=== PATIENT | female | born 1970 | race Caucasian/White ===

== ENCOUNTER → 2018-11-01 | Outpatient (CLI) | payer BC ==
--- NOTE | 2018-11-01 14:25 | Diagnostic Imaging Report ---
INDICATION: Chronic cough EXAMINATION: PA and lateral chest at 1:51 p.m. . COMPARISON: There are no prior studies available for comparison. FINDINGS: The heart size is within normal limits. The lungs are clear. There is no evidence for failure, pneumonia or for a pleural effusion. The mediastinum is not widened. The osseous structures are intact. IMPRESSION: There is no evidence for an acute cardiopulmonary abnormality. Dictated by: Dictated on workstation # [id number]
== END ==
LOC: RAD FS 13:42
PROVIDERS: ATTEND Physician Assistant
DX: R05 Cough (principal)
CPT/HCPCS: 71046

== ENCOUNTER → 2019-10-14 | Outpatient (CLI) | payer SELFPAY ==
--- NOTE | 2019-10-14 13:58 | Diagnostic Imaging Report ---
INDICATION: Lower abdominal pain and bloating. TIME OF EXAM: 1:41 PM The bowel gas pattern appears nonobstructed. No pathologic calcifications are seen. No free air is identified. IMPRESSION: No acute feature is detected. Dictated by: Dictated on workstation # [id number]
== END ==
LOC: RAD FS 13:23
PROVIDERS: ATTEND Nurse Practitioner Family
DX: R10.30 Lower abdominal pain, unspecified (principal); R10.84 Generalized abdominal pain
CPT/HCPCS: 74018

== ENCOUNTER 2021-11-01 23:49 | Emergency (ER) | payer OTHER ==
[~2021-11-01] VITALS: Ht 154 cm; Wt 80.0 kg
[2021-11-02 00:20] VITALS: BP 164/79
[2021-11-02] MEDS ORDERED: RT-ALBUTEROL/IPRATROPIUM 3 ML (DUONEB) VIAL INH ONE (00:30)
[2021-11-02] MEDS ORDERED: oxyCODONE/APAP 5/325MG (PERCOCET 5) TABLET PO ONE (00:30)
[2021-11-02] MEDS ORDERED: predniSONE 20 MG TAB PO ONE (00:30)
--- NOTE | 2021-11-02 00:30 | ED General ---
General Chief Complaint: Cough/Cold/Flu Symptoms Stated Complaint: TROUBLE BREATHIN/COUGH/LEFT EYE PAIN Nursing Triage Note: pt presents with reports of cough and left eye drainage x3days Source of Information: Patient Exam Limitations: No Limitations History of Present Illness Date Seen by Provider: Nov 02, 2021 Time Seen by Provider: 00:00 Initial Comments Patient is a 51-year-old female who presents with painful cough, hoarseness, sor e throat and left eye drainage for 3 days. Patient reports shortness of breath secondary to cough. No fever chills, nausea vomiting or sweats. Reports chest wall pain. Denies history of asthma. Patient is a non-smoker. No medications or therapies taken prior to arrival. Timing/Duration: 1-3 Hours Severity: Mild Modifying Factors: improves with Other Associated Systoms: Other Allergies and Home Medications Allergies Coded Allergies: No Known Allergies (Verified Allergy, Unknown, 11/02/21) Patient Home Medication List Home Medication List Reviewed: Yes Review of Systems Review of Systems Constitutional: see HPI EENTM: see HPI Respiratory: see HPI Cardiovascular: see HPI Genitourinary: see HPI Musculoskeletal: see HPI Skin: see HPI Psychiatric/Neurological: See HPI Hematologic/Lymphatic: See HPI Immunological/Allergic: see HPI All Other Systems Reviewed Negative Unless Noted: Yes Past Qrthpsg-Fmelpm-Llghxv Hx Patient Social History Tobacco Use?: Yes Tobacco type used: Cigarettes Smoking Status: Current Everyday Smoker Substance use?: No Alcohol Use?: No Immunizations Up To Date Influenza Vaccine Up-to-Date: No; Not Current Physical Exam Vital Signs Vital Signs - First Documented 11/02/21 00:20 Pulse 97 Resp 20 B/P (MAP) 164/79 (107) Pulse Ox 97 O2 Delivery Room Air O2 Flow Rate 97.00 Capillary Refill : Height, Weight, BMI Height: '" Weight: lbs. oz. kg; 33.00 BMI Method: General Appearance: No Apparent Distress, WD/WN Eyes: Bilateral Eye Normal Inspection, Bilateral Eye PERRL, Bilateral Eye EOMI HEENT: Pharynx Normal Neck: Normal Inspection, Non Tender, Supple, Other (Matting of left eyelids) Respiratory: Lungs Clear, Decreased Breath Sounds, Rhonci Cardiovascular: Regular Rate, Rhythm Gastrointestinal: Non Tender, Soft Back: Normal Inspection Neurologic/Psychiatric: Alert, Oriented x3, No Motor/Sensory Deficits Focused Exam Sepsis Stage: Ruled Out Progress/Results/Core Measures Suspected Sepsis SIRS Temperature: Pulse: 97 Respiratory Rate: 20 Blood Pressure 164 /79 Mean: 107 Results/Orders My Orders Orders - RASHIDASOHAM Prednisone Tablet (Deltasone Tablet) (11/02/21 00:30) Oxycodone/Apap 5/325mg Tablet (Percocet (11/02/21 00:30) Albuterol/Ipra Inhalation Soln (Duoneb I (11/02/21 00:30) Svn Small Volume Nebulizer (11/02/21 00:20) Influenza A & B Antigens (11/02/21 00:20) Medications Given in ED Current Medications Medications Dose Ordered Sig/Gatito Route Start Time Stop Time Status Last Admin Dose Admin Albuterol/ Ipratropium 3 ml ONCE ONCE INH 11/02/21 00:30 11/02/21 00:31 DC 11/02/21 00:26 3 ML Oxycodone/ Acetaminophen 1 tab ONCE ONCE PO 11/02/21 00:30 11/02/21 00:31 DC 11/02/21 00:26 1 TAB Prednisone 50 mg ONCE ONCE PO 11/02/21 00:30 11/02/21 00:31 DC 11/02/21 00:26 50 MG Vital Signs/I&O 11/02/21 11/02/21 00:20 00:20 Pulse 97 Resp 20 B/P (MAP) 164/79 (107) Pulse Ox 97 O2 Delivery Room Air Room Air O2 Flow Rate 97.00 Capillary Refill : Blood Pressure Mean: 107 Departure Communication (Admissions) Symptoms consistent with walking pneumonia with bacterial pinkeye. Symptoms improved with treatment. Impression Primary Impression: Bronchial pneumonia Additional Impression: Bacterial conjunctivitis of left eye Disposition: 01 HOME, SELF-CARE Condition: Stable Departure-Patient Inst. Decision time for Depature: 00:38 Referrals: [facility]KAVYA (PCP) Primary Care Physician DIMITRY DAVIS APRN (Family) Primary Care Physician Patient Instructions: Conjunctivitis (Pinkeye) (DC), Acute Bronchitis, Adult (DC) Add. Discharge Instructions: You were evaluated in the emergency department for cough, sore throat and left eye infection. Please take newly prescribed medications as directed increase fluids and follow-up with your PCP in 2 to 3 days for reevaluation symptoms persist. Return to the ED if new or worsening symptoms. All discharge instructions reviewed with patient and/or family. Voiced understanding. Scripts Ofloxacin (Ofloxacin) 0.3 % Drops 5 ML OT Q3HR, #2 DROPS Prov: SOHAM FIELD DO 11/02/21 Prednisone (Prednisone) 20 Mg Tab 40 MG PO DAILY, #6 TAB 0 Refills Prov: SOHAM FIELD DO 11/02/21 Azithromycin (Zithromax) 250 Mg Tablet 250 MG PO UD, #6 TAB TAKE 2 TABLETS TODAY, THEN TAKE 1 TABLET DAILY FOR 4 MORE DAYS Prov: SOHAM FIELD DO 11/02/21 Benzonatate (TESSALON PERLES) 100 Mg Capsule 200 MG PO Q8H, #10 CAP Prov: SOHAM FIELD DO 11/02/21 SOHAM FIELD DO Nov 02, 2021 00:30
[2021-11-02] MEDS ORDERED: BENZ100C18 PO (00:42)
[2021-11-02] MEDS ORDERED: AZIT250T PO (00:42)
[2021-11-02] MEDS ORDERED: PRD20T PO (00:42)
[2021-11-02] MEDS ORDERED: OFLO5DRO33 OT (00:42)
== END 2021-11-02 00:46 | disposition home or self-care (01) ==
LOC: EDUNIT# 23:49 → ER FS 23:52
DX: J18.0 Bronchopneumonia, unspecified organism (principal); H10.89 Other conjunctivitis; F17.210 Nicotine dependence, cigarettes, uncomplicated
CPT/HCPCS: 87804; 99283

== ENCOUNTER 2022-10-08 12:13 | Emergency (ER) | payer OTHER ==
[~2022-10-08] VITALS: Ht 154 cm; Wt 77.0 kg
[~2022-10-08 12:13] MED LIST: AZIT250T PO; BENZ100C18 PO; OFLO5DRO33 OT; PRD20T PO
[2022-10-08] MEDS ORDERED: LIDOCAINE 1% INJ 20 ML VIAL ONE (12:24)
[2022-10-08] MEDS ORDERED: ONDANSETRON 4 MG (ZOFRAN) ORAL DISSOLVE TAB PO STA (12:35)
[2022-10-08] MEDS ORDERED: ONDANSETRON 4 MG (ZOFRAN) ORAL DISSOLVE TAB ONE (12:37)
[2022-10-08] MEDS ORDERED: TETANUS,DIPTH,PERTUSS P/F (BOOSTRIX) 0.5 ML VIAL IM ONE (12:45)
[2022-10-08] MEDS ORDERED: TETANUS & DIPHTHERIA TOX,ADULT 0.5 ML (TENIVAC) IM ONE (12:45)
[2022-10-08] MEDS ORDERED: LIDOCAINE 1% INJ 10 ML VIAL INJ ONE (12:45)
--- NOTE | 2022-10-08 12:50 | ED Upper Extremity ---
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 Source: patient History of Present Illness Date Seen by Provider: Oct 08, 2022 Time Seen by Provider: 12:16 Initial Comments 52-year-old female presenting with complaints of laceration to her left index finger. She was at work sharpening a knife and the irrigator came off the wall. This caused her to have the knife cut into her left index finger. She is right-hand dominant. She denies any other injuries. She was unsure of her last tetanus booster. She had pain at the site of injury but was able to still move her finger and had normal sensation. She reports injury happened just prior to coming to the emergency department they were trying to get lunch ready when this happened. Location Injury Occurred: [place] [facility] Onset: just prior to arrival Severity: moderate Pain/Injury Location: left 2nd finger Method of Injury: incised Modifying Factors: Worse With Movement Allergies and Home Medications Allergies Coded Allergies: No Known Allergies (Verified Allergy, Unknown, 11/02/21) Patient Home Medication List Home Medication List Reviewed: Yes Azithromycin (Zithromax) 250 Mg Tablet, 250 MG PO UD Prescribed by: SOHAM FIELD on 11/02/2141 Benzonatate (Tessalon Perles) 100 Mg Capsule, 200 MG PO Q8H Prescribed by: SOHAM FIELD on 11/02/2141 Ofloxacin (Ofloxacin) 0.3 % Drops, 5 ML OT Q3HR Prescribed by: SOHAM FIELD on 11/02/2141 Prednisone (Prednisone) 20 Mg Tab, 40 MG PO DAILY Prescribed by: SOHAM FIELD on 11/02/2141 Review of Systems Constitutional: No chills, No fever EENTM: no symptoms reported Respiratory: no symptoms reported Cardiovascular: no symptoms reported Gastrointestinal: no symptoms reported Genitourinary: no symptoms reported Musculoskeletal: see HPI Skin: see HPI Psychiatric/Neurological: Anxiety; Denies Numbness, Denies Paresthesia Past Httcszd-Bvddjc-Vrnfxm Hx Patient Social History Tobacco Use?: Yes Tobacco type used: Cigarettes Smoking Status: Current Everyday Smoker Use of E-Cig and/or Vaping dev: No Substance use?: No Alcohol Use?: No Pt feels they are or have been: No Past Medical History Surgeries: No Physical Exam Vital Signs Vital Signs - First Documented 10/08/22 12:15 Temp 35.8 Pulse 98 Resp 16 B/P (MAP) 179/94 (122) Pulse Ox 95 O2 Delivery Room Air Capillary Refill : Less Than 3 Seconds Height, Weight, BMI Height: '" Weight: lbs. oz. kg; 32.00 BMI Method: General Appearance: WD/WN, other (anxious) HEENT: PERRL/EOMI, pharynx normal Cardiovascular: normal peripheral pulses, regular rate, rhythm Respiratory: chest non-tender, lungs clear, normal breath sounds Hand: normal ROM, Left, laceration (left index finger extensor surface just distal to MCP joint), nail injury, soft tissue tenderness Neurologic/Tendon: normal sensation, normal motor functions, normal tendon functions Neurologic/Psychiatric: no motor/sensory deficits, alert, oriented x 3 Skin: normal color, warm/dry, other (2.6 cm laceration to the extensor surface of left index finger just distal to MCP joint) Procedures/Interventions Wound Location: Upper Extremities (left index finger) Wound Length (cm): 2.6 Wound's Depth, Shape: linear, sub Q Wound Explored: clean Anesthesia: 1% Lidocaine Volume Anesthetic (ccs): 5 Suture: Ethlion Suture Size: 4-0 Number of Sutures: 5 Layer Closure?: 1 Sterile Dressing Applied?: Yes Progress After obtaining verbal consent from the patient the finger was cleaned and then anesthetized with 1% plain lidocaine by infiltrating 5 mL and a ring block fa shion. Then the wound was cleaned and scrubbed with chlorhexidine scrub soap and sterile water. No foreign bodies were visualized. Using 4-0 Ethilon a total of 5 simple interrupted stitches were placed to approximate the wound edges. Patient tolerated procedure well but did have a vasovagal response with injection of medicine. She was given a single dose of Zofran ODT 4 mg to try and help with nausea. She had a cold wash rag placed on her forehead. The wound edges were well approximated and a clean sterile dressing was applied. Counseled to keep the dressing clean and dry for the first 24 hours and then she could change the dressing and wash with soap and water but do not soak the wound. The stitches should come out in 10 to 14 days. Watch for signs of infection. May cover with a Band-Aid if it might get dirty or if the stitches are catching on things. May apply triple antibiotic or Neosporin type antibiotic once or twice a day as needed to help with healing. Progress/Results/Core Measures Results/Orders My Orders Orders - AUGIE BORREGO MD Lidocaine 1% Inj 20 Ml (Xylocaine 1% Inj (10/08/22 12:24) Ondansetron Oral Dissolve Tab (Zofran (10/08/22 12:35) Lidocaine 1% Inj 10 Ml (Xylocaine 1% Inj (10/08/22 12:45) Tetanus/Diphtheria Inj (Adult) (Tenivac (10/08/22 12:45) Ondansetron Oral Dissolve Tab (Zofran (10/08/22 12:37) Dipht,Pertuss(Acell),Tet Adult (Boostrix (10/08/22 12:45) Suture Set At Bedside (10/08/22 12:47) Wound Dressing-Ed (10/08/22 12:47) Medications Given in ED Current Medications Medications Dose Ordered Sig/Gatito Route Start Time Stop Time Status Last Admin Dose Admin Lidocaine HCl 10 ml ONCE ONCE INJ 10/08/22 12:45 10/08/22 12:46 DC 10/08/22 12:43 10 ML Vital Signs/I&O 10/08/22 10/08/22 12:15 12:52 Temp 35.8 35.8 Pulse 98 98 Resp 16 16 B/P (MAP) 179/94 (122) 179/94 Pulse Ox 95 95 O2 Delivery Room Air Room Air Blood Pressure Mean: 122 Progress Progress Note : Progress Note As patient does not appear to have any tendon or nerve injury since she has normal sensation to her left index finger and normal range of motion, the wound was cleaned with chlorhexidine scrub soap and sterile water. As there was still concern for foreign bodies or bony injury an x-ray was not needed to evaluate the wound. Using 4-0 Ethilon a total of 5 simple interrupted stitches were placed after she had received a digital ring block with 1% plain lidocaine. She did have a vasovagal response with feeling hot and flushed as well as nauseated. This occurred after talking about receiving medication by injection. She seemed to have more symptoms after she has not been injected with the lidocaine for the digital ring block. She otherwise tolerated the laceration repair well. Counseled on management of the wound as well as follow-up and return precautions. Advised to have the stitches out in 10 to 14 days. Advised she could return to work under light duty as she would have to keep his dressing clean and dry on her left index finger for 24 hours. After that she would need to cover it if it might get dirty and she should not be soaking her finger or hand in water. As she was unsure about her last tetanus shot I advised her she could have up to 72 hours to get that updated. She initially said that she would just have the shot done here however after she had vasovagal symptoms and felt nauseated with a hot flash she decided to refused the tetanus vaccine booster. Counseled that she could use [id number] acetaminophen or ibuprofen if needed for pain. She could also try and elevate her hand if it was hurting or throbbing. She can apply ice for 15 to 20 minutes 3-4 times a day as needed to help with pain and swelling. Advised to check back with the clinic if she requires a tetanus booster as they could also provide that. Departure Impression Primary Impression: Laceration of left index finger w/o foreign body w/o damage to nail Qualified Codes: S61.211A - Laceration without foreign body of left index finger without damage to nail, initial encounter Disposition: 01 HOME, SELF-CARE Condition: Stable Departure-Patient Inst. Decision time for Depature: 12:48 Referrals: CAROL ANN LÓPEZ MD (PCP) Primary Care Physician Patient Instructions: Laceration Repair With Stitches ED, Common Finger Injuries Add. Discharge Instructions: Keep wound and dressing clean and dry for the first 24 hours. After that you may remove the dressing and wash with soap and water. Do not soak the wound as that can make the stitches come out and the wound reopened. Tomorrow afternoon when you remove the dressing and wash the wound you could apply triple antibiotic or Neosporin and cover with a Band-Aid if it might get dirty. The stitches would need to be removed in 10 to 14 days. 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 Consider taking acetaminophen and/or ibuprofen for soreness with the injury. You could also apply ice and try and elevate the hand above heart level to help with any pain or swelling. If you see signs of infection such as redness streaking up your hand, pus draining from the wound, fever over 101 Fahrenheit then you need to be seen aga in to see if you might need antibiotics. All discharge instructions reviewed with patient and/or family. Voiced understanding. AUGIE BORREGO MD Oct 08, 2022 12:50
[2022-10-08 12:52] VITALS: BP 179/94
== END 2022-10-08 12:55 | disposition home or self-care (01) ==
LOC: EDUNIT# 12:13 → ER FS 12:15
DX: S61.211A Laceration without foreign body of left index finger without damage to nail, initial encounter (principal); F17.210 Nicotine dependence, cigarettes, uncomplicated; Z28.310 Unvaccinated for COVID-19; W26.0XXA Contact with knife, initial encounter; Y92.129 Unspecified place in nursing home as the place of occurrence of the external cause; Y99.0 Civilian activity done for income or pay
CPT/HCPCS: 12001

== ENCOUNTER 2022-12-25 07:53 | Emergency (ER) | payer OTHER ==
[~2022-12-25] VITALS: Ht 154 cm; Wt 79.0 kg
[2022-12-25 08:04] VITALS: BP 193/74
--- NOTE | 2022-12-25 08:06 | ED Cough/URI ---
General Chief Complaint: Cough/Cold/Flu Symptoms Stated Complaint: CHEST PAIN History of Present Illness Date Seen by Provider: Dec 25, 2022 Time Seen by Provider: 08:01 Initial Comments 52-year-old female with PMH of DM2/HTN/HLD/smoker (3 to 5 cigarettes/day), is here with complaints of dry cough and chest tightness for the past 2 weeks. Patient had chills 2 or 3 days ago. Patient states that she feels a little bit short of breath with wheezing when she walks around or climbs stairs. Denies chest pain, palpitations, nausea and vomiting, diaphoresis, abdominal pain, diarrhea, dizziness. Allergies and Home Medications Allergies Coded Allergies: No Known Allergies (Verified Allergy, Unknown, 11/02/21) Patient Home Medication List Home Medication List Reviewed: Yes Azithromycin (Zithromax) 250 Mg Tablet, 250 MG PO UD Prescribed by: SOHAM FIELD on 11/02/2141 Benzonatate (Tessalon Perles) 100 Mg Capsule, 200 MG PO Q8H Prescribed by: SOHAM FIELD on 11/02/2141 Ofloxacin (Ofloxacin) 0.3 % Drops, 5 ML OT Q3HR Prescribed by: SOHAM FIELD on 11/02/2141 Prednisone (Prednisone) 20 Mg Tab, 40 MG PO DAILY Prescribed by: SOHAM FIELD on 11/02/2141 Review of Systems Review of Systems Constitutional: chills EENTM: no symptoms reported Respiratory: cough, dyspnea on exertion, wheezing Cardiovascular: no symptoms reported Gastrointestinal: no symptoms reported Genitourinary: no symptoms reported Musculoskeletal: no symptoms reported Skin: no symptoms reported Psychiatric/Neurological: No Symptoms Reported Hematologic/Lymphatic: No Symptoms Reported Immunological/Allergic: no symptoms reported Past Qtnvrpw-Rpjhob-Zapkgr Hx Patient Social History Tobacco Use?: Yes Tobacco type used: Cigarettes Smoking Status: Current Everyday Smoker Use of E-Cig and/or Vaping dev: No Substance use?: No Alcohol Use?: No Pt feels they are or have been: No Past Medical History Surgeries: No Physical Exam Vital Signs - First Documented 12/25/22 08:04 Temp 35.9 Pulse 102 Resp 16 B/P (MAP) 193/74 (113) Pulse Ox 98 Capillary Refill : Height: '" Weight: lbs. oz. kg; 32.00 BMI Method: General Appearance: WD/WN, no apparent distress HEENT: PERRL/EOMI, normal ENT inspection Neck: non-tender, full range of motion, supple Respiratory: chest non-tender, no respiratory distress, no accessory muscle use, wheezing (Very mild expiratory occasional wheezes) Cardiovascular: normal peripheral pulses, regular rate, rhythm Gastrointestinal: normal bowel sounds, non tender, soft Extremities: no pedal edema Neurologic/Psychiatric: alert, normal mood/affect, oriented x 3 Skin: normal color Procedures/Interventions Suture Size: 4-0 Progress/Results/Core Measures Suspected Sepsis SIRS Temperature: Pulse: Respiratory Rate: Laboratory Tests 12/25/22 08:18: White Blood Count 10.7 Blood Pressure / Mean: Laboratory Tests 12/25/22 08:18: Creatinine 0.78, Platelet Count 270, Total Bilirubin 0.2 Results/Orders Lab Results Laboratory Tests Test 12/25/22 08:18 12/25/22 08:40 Range/Units White Blood Count 10.7 4.3-11.0 10^3/uL Red Blood Count 5.06 3.80-5.11 10^6/uL Hemoglobin 15.5 11.5-16.0 g/dL Hematocrit 47 35-52 % Mean Corpuscular Volume 93 80-99 fL Mean Corpuscular Hemoglobin 31 25-34 pg Mean Corpuscular Hemoglobin Concent 33 32-36 g/dL Red Cell Distribution Width 13.3 10.0-14.5 % Platelet Count 270 130-400 10^3/uL Mean Platelet Volume 10.1 9.0-12.2 fL Immature Granulocyte % (Auto) 1 % Neutrophils (%) (Auto) 61 42-75 % Lymphocytes (%) (Auto) 24 12-44 % Monocytes (%) (Auto) 8 0-12 % Eosinophils (%) (Auto) 5 0-10 % Basophils (%) (Auto) 1 0-10 % Neutrophils # (Auto) 6.5 1.8-7.8 10^3/uL Lymphocytes # (Auto) 2.6 1.0-4.0 10^3/uL Monocytes # (Auto) 0.9 0.0-1.0 10^3/uL Eosinophils # (Auto) 0.5 H 0.0-0.3 10^3/uL Basophils # (Auto) 0.1 0.0-0.1 10^3/uL Immature Granulocyte # (Auto) 0.1 0.0-0.1 10^3/uL Sodium Level 140 135-145 MMOL/L Potassium Level 4.1 3.6-5.0 MMOL/L Chloride Level 104 98-107 MMOL/L Carbon Dioxide Level 23 21-32 MMOL/L Anion Gap 13 5-14 MMOL/L Blood Urea Nitrogen 13 7-18 MG/DL Creatinine 0.78 0.60-1.30 MG/DL Estimat Glomerular Filtration Rate 90 BUN/Creatinine Ratio 17 Glucose Level 179 H 70-105 MG/DL Calcium Level 8.9 8.5-10.1 MG/DL Corrected Calcium 9.0 8.5-10.1 MG/DL Magnesium Level 1.9 1.6-2.4 MG/DL Total Bilirubin 0.2 0.1-1.0 MG/DL Aspartate Amino Transf (AST/SGOT) 28 5-34 U/L Alanine Aminotransferase (ALT/SGPT) 38 0-55 U/L Alkaline Phosphatase 131 40-136 U/L Troponin I < 0.30 <0.30 NG/ML Total Protein 7.3 6.4-8.2 GM/DL Albumin 3.9 3.2-4.5 GM/DL Influenza Type A (RT-PCR) Not Detected Not Detecte Influenza Type B (RT-PCR) Not Detected Not Detecte SARS-CoV-2 RNA (RT-PCR) Not Detected Not Detecte Urine Color YELLOW Urine Clarity CLEAR Urine pH 6.0 5-9 Urine Specific [place] >=1.030 1.016-1.022 Urine Protein NEGATIVE NEGATIVE Urine Glucose (UA) 3+ H NEGATIVE Urine Ketones NEGATIVE NEGATIVE Urine Nitrite NEGATIVE NEGATIVE Urine Bilirubin NEGATIVE NEGATIVE Urine Urobilinogen 0.2 < = 1.0 MG/DL Urine Leukocyte Esterase NEGATIVE NEGATIVE Urine RBC (Auto) NEGATIVE NEGATIVE Urine RBC NONE /HPF Urine WBC 0-2 /HPF Urine Squamous Epithelial Cells 5-10 /HPF Urine Crystals NONE /LPF Urine Bacteria NEGATIVE /HPF Urine Casts NONE /LPF Urine Mucus SMALL H /LPF Urine Culture Indicated NO Urine Opiates Screen NEGATIVE NEGATIVE Urine Oxycodone Screen NEGATIVE NEGATIVE Urine Methadone Screen NEGATIVE NEGATIVE Urine Propoxyphene Screen NEGATIVE NEGATIVE Urine Barbiturates Screen NEGATIVE NEGATIVE Ur Tricyclic Antidepressants Screen NEGATIVE NEGATIVE Urine Phencyclidine Screen NEGATIVE NEGATIVE Urine Amphetamines Screen POSITIVE H NEGATIVE Urine Methamphetamines Screen POSITIVE H NEGATIVE Urine Benzodiazepines Screen NEGATIVE NEGATIVE Urine Cocaine Screen NEGATIVE NEGATIVE Urine Cannabinoids Screen NEGATIVE NEGATIVE My Orders Orders - GLADYS SCHAFFER MD Chest 1 View Ap/Pa Only (12/25/22 08:06) Cbc With Automated Diff (12/25/22 08:07) Comprehensive Metabolic Panel (12/25/22 08:07) Drug Screen Stat (Urine) (12/25/22 08:07) Magnesium (12/25/22 08:07) Ua Culture If Indicated (12/25/22 08:07) Troponin I Fs (12/25/22 08:07) Covid 19 Inhouse Test (12/25/22 08:07) Influenza A And B By Pcr (12/25/22 08:07) Albuterol/Ipra Inhalation Soln (Duoneb I (12/25/22 09:15) Svn Small Volume Nebulizer (12/25/22 09:07) Medications Given in ED Current Medications Medications Dose Ordered Sig/[place] Route Start Time Stop Time Status Last Admin Dose Admin Albuterol/ Ipratropium 3 ml ONCE ONCE INH 12/25/22 09:15 12/25/22 09:16 DC 12/25/22 09:23 3 ML Vital Signs/I&O 12/25/22 08:04 Temp 35.9 Pulse 102 Resp 16 B/P (MAP) 193/74 (113) Pulse Ox 98 Capillary Refill : Progress Note : Progress Note 1. ASTHMA vs COPD - CXR: no acute findings - CBC/CMP: normal WBC - Troponin: undetected - Rapid flu test/ COVID test: negative - UA negative - Duo neb x1 given in ER -Infectious and emergent causes of patient's symptoms ruled out. Patient symptoms are likely due to asthma or COPD. -Patient's vitals are stable and patient is able to speak in clear sentences without any difficulty or shortness of breath. -Prescription given to patient for albuterol inhaler to be used as needed for shortness of breath every 4 hours -Advised to follow-up with PCP within the next 7 days, patient will be needing lung function testing for confirmatory diagnosis of asthma or COPD. -Advised patient to stop smoking -The patient was seen in the ED, and treated appropriately to presentation at a specific point in time. Patient is informed that there is a possibility that disease and illness can evolve and change in acuity rapidly or slowly after patient is discharged from the ER. Precautionary advice given to the patient for immediate return to ER if symptoms worsen or do not resolve, and to seek emergency care sooner rather than later. Pt also advised on the importance of PCP follow up and compliance with management and follow up plan with PCP and/or specialist, as this is part of the management plan. Pt verbally expressed understanding. 2. METHAMPHETAMINE ABUSE: -UDS is positive for methamphetamine -Advised patient to stop using any type of recreational recreational/illicit drugs Diagnostic Imaging Diagonstic Imaging: Xray Plain Films/CT/US/NM/MRI: chest Comments [facility], [place] NAME: SH[facility]AL [facility] REC#: [id number] PT STATUS: REG ER : 1970 PHYSICIAN: GLADYS SCHAFFER MD ADMIT DATE: 12/25/22/ER FS Draft Date of Exam:12/25/22 CHEST 1 VIEW AP/PA ONLY Indication: Cough. Findings: Lungs clear. No failure, effusion or pneumothorax. Impression: No acute-appearing abnormality. Dictated on workstation # [id number] Dict: 12/25/22 0843 Trans: 12/25/22 0844 [facility] [id number] Interpreted by: JOSH WHYTE Electronically signed by: Departure Impression Primary Impression: COPD suggested by initial evaluation Additional Impressions: Reactive airway disease Qualified Codes: J45.909 - Unspecified asthma, uncomplicated Methamphetamine abuse Disposition: 01 HOME, SELF-CARE Condition: Stable Departure-Patient Inst. Referrals: CAROL ANN LÓPEZ MD (PCP) Primary Care Physician DIMITRY DAVIS APRN (Family) Primary Care Physician Patient Instructions: COPD Diet, Avoiding asthma triggers, Rescue vs Controller Inhalers, Pulmonary rehabilitation, Risk Factors for COPD, Chronic Obstructive Pulmonary Disease (COPD) (DC), Asthma in adults, How to Use a Metered Dose Inha ler ED Add. Discharge Instructions: -Prescription given to patient for albuterol inhaler to be used as needed for shortness of breath every 4 hours -Advised to follow-up with PCP within the next 7 days, patient will be needing lung function testing for confirmatory diagnosis of asthma or COPD. -Advised patient to stop smoking -Advised patient to stop using any type of recreational recreational/illicit drugs All discharge instructions reviewed with patient and/or family. Voiced under standing. Scripts Albuterol Sulfate (VENTOLIN HFA) 1 Puff Puff 2 PUFF INH Q4H for Shortness of Breath for 30 Days, #1 EA 1 PUFF = 90 MCG Prov: GLADYS SCHAFFER MD 12/25/22 Albuterol Sulfate (VENTOLIN HFA) 1 Puff Puff 2 PUFF INH Q4H for Shortness of Breath for 30 Days, #1 EA 1 PUFF = 90 MCG Prov: GLADYS SCHAFFER MD 12/25/22 GLADYS SCHAFFER MD Dec 25, 2022 08:06
[2022-12-25 08:27] LABS: BASOPHILS # (AUTO) 0.1 10^3/uL (0.0-0.1); BASOPHILS % (AUTO) 1 % (0-10); EOSINOPHILS # (AUTO) 0.5 10^3/uL (0.0-0.3); EOSINOPHILS % (AUTO) 5 % (0-10); HEMATOCRIT 47 % (35-52); HEMOGLOBIN 15.5 g/dL (11.5-16.0); LYMPHOCYTES # (AUTO) 2.6 10^3/uL (1.0-4.0); LYMPHOCYTES % (AUTO) 24 % (12-44); MEAN CORPUSCULAR HEMOGLOBIN 31 pg (25-34); MEAN CORPUSCULAR HGB CONC 33 g/dL (32-36); MEAN CORPUSCULAR VOLUME 93 fL (80-99); MEAN PLATELET VOLUME 10.1 fL (9.0-12.2); MONOCYTES # (AUTO) 0.9 10^3/uL (0.0-1.0); MONOCYTES % (AUTO) 8 % (0-12); NEUTROPHILS # (AUTO) 6.5 10^3/uL (1.8-7.8); NEUTROPHILS % (AUTO) 61 % (42-75); PLATELET COUNT 270 10^3/uL (130-400); WHITE BLOOD COUNT 10.7 10^3/uL (4.3-11.0)
--- NOTE | 2022-12-25 08:44 | Diagnostic Imaging Report ---
Indication: Cough. Findings: Lungs clear. No failure, effusion or pneumothorax. Impression: No acute-appearing abnormality. Dictated by: Dictated on workstation # [id number]
[2022-12-25 08:50] LABS: BILIRUBIN,URINE NEGATIVE (NEGATIVE); CLARITY,URINE CLEAR; COLOR,URINE YELLOW; GLUCOSE, URINE (UA) 3+ (NEGATIVE); KETONES,URINE NEGATIVE (NEGATIVE); LEUKOCYTE ESTERASE ,URINE NEGATIVE (NEGATIVE); NITRITE,URINE NEGATIVE (NEGATIVE); PROTEIN,URINE NEGATIVE (NEGATIVE)
[2022-12-25 09:05] LABS: BACTERIA,URINE NEGATIVE /HPF; WBC,URINE 0-2 /HPF
[2022-12-25 09:07] LABS: BUN/CREATININE RATIO 17; CARBON DIOXIDE 23 MMOL/L (21-32); CHLORIDE 104 MMOL/L (98-107); CREATININE SERUM 0.78 MG/DL (0.60-1.30); GFR ESTIMATED 90; GLUCOSE 179 MG/DL (70-105); POTASSIUM 4.1 MMOL/L (3.6-5.0); SODIUM 140 MMOL/L (135-145)
[2022-12-25 09:08] LABS: ALANINE AMINOTRANSFERASE 38 U/L (0-55); ALBUMIN 3.9 GM/DL (3.2-4.5); ALKALINE PHOSPHATASE 131 U/L (40-136); BILIRUBIN,TOTAL 0.2 MG/DL (0.1-1.0); CALCIUM 8.9 MG/DL (8.5-10.1); MAGNESIUM 1.9 MG/DL (1.6-2.4); TOTAL PROTEIN 7.3 GM/DL (6.4-8.2)
[2022-12-25 09:09] LABS: AMPHETAMINE SCREEN, URINE POSITIVE (NEGATIVE); BARBITURATE SCREEN URINE NEGATIVE (NEGATIVE); BENZODIAZEPINES SCREEN URINE NEGATIVE (NEGATIVE); CANNABINOID SCREEN, URINE NEGATIVE (NEGATIVE); COCAINE SCREEN URINE NEGATIVE (NEGATIVE); OPIATE SCREEN URINE NEGATIVE (NEGATIVE); TRICYCLIC ANTIDEPRESSANTS SCRE NEGATIVE (NEGATIVE)
[2022-12-25 09:10] LABS: METHADONE STAT NEGATIVE (NEGATIVE); OXYCODONE STAT NEGATIVE (NEGATIVE); PROPOXYPHENE STAT NEGATIVE (NEGATIVE)
[2022-12-25] MEDS ORDERED: RT-ALBUTEROL/IPRATROPIUM 3 ML (DUONEB) VIAL INH ONE (09:15)
[2022-12-25] MEDS ORDERED: RT-ALBUINH INH (09:58)
== END 2022-12-25 10:03 | disposition home or self-care (01) ==
LOC: EDUNIT# 07:53 → ER FS 07:55
DX: J45.909 Unspecified asthma, uncomplicated (principal); F15.10 Other stimulant abuse, uncomplicated; F17.210 Nicotine dependence, cigarettes, uncomplicated; Z20.822 Contact with and (suspected) exposure to COVID-19; Z28.310 Unvaccinated for COVID-19
CPT/HCPCS: 36415; 71045; 80053; 80306; 81000; 83735; 84484; 85025; 87636; 94640